=== PATIENT | male | born 1980 | race Caucasian/White ===

== ENCOUNTER 2022-04-22 19:42 | Emergency (ER) | payer MEDICAID ==
[2022-04-22] MEDS ORDERED: Sodium Chloride 0.9% 10 ML Syringe FLUSH PRN (20:12)
[2022-04-22] MEDS ORDERED: Acetaminophen 500 MG Tab PO STA (20:14)
[2022-04-22] MEDS ORDERED: Ketorolac 30 MG/ML SDV IVPUSH ONE (20:14)
[2022-04-22] MEDS ORDERED: Sodium Chloride 0.9% 1,000 ML IV SCH (20:15)
[2022-04-22] MEDS ORDERED: Ondansetron 4 MG/2 ML SDV IVPUSH STA (20:16)
[2022-04-22] MEDS ORDERED: Albuterol/Ipratropium 3.0-0.5 MG/3 ML Neb Soln NEB ONE (20:16)
[2022-04-22 20:32] LABS: ESTIMATED GFR 71 mL/min (>60)
[2022-04-22] MEDS ORDERED: Azithromycin 500 MG Tab PO STA (21:49)
[2022-04-22] MEDS ORDERED: Potassium Chloride 20 MEQ Tab.ER PO STA (21:49)
== END 2022-04-22 22:18 | disposition home or self-care (01) ==
LOC: FB.ED 19:42
DX: U07.1 COVID-19 (principal); J12.82 Pneumonia due to coronavirus disease 2019; E87.6 Hypokalemia; F17.210 Nicotine dependence, cigarettes, uncomplicated
CPT/HCPCS: 36415; 71045; 80053; 85025; 94640; 96361; 96374; 96375; 99284-25; A9270-GY; J1885; J2405; J7030; J7620; U0002